=== PATIENT | female | born 1995 | race Two or more races ===

== ENCOUNTER 2020-04-24 23:05 | Emergency (ER) | payer MEDICAID ==
[~2020-04-24] VITALS: Ht 161.3 cm; Wt 120.0 kg
[2020-04-24] MEDS ORDERED: TRAZ-257 PO (23:15)
[2020-04-24] MEDS ORDERED: NALT50TA6 PO (23:15)
[2020-04-25 01:37] VITALS: BP 129/102
== END 2020-04-25 01:37 | disposition home or self-care (01) ==
LOC: EMS 23:05
DX: H60.92 Unspecified otitis externa, left ear (principal); J45.909 Unspecified asthma, uncomplicated; I10 Essential (primary) hypertension; F20.9 Schizophrenia, unspecified; F17.210 Nicotine dependence, cigarettes, uncomplicated; F12.90 Cannabis use, unspecified, uncomplicated; Z91.040 Latex allergy status
CPT/HCPCS: 99283; Z7502

== ENCOUNTER 2020-05-02 13:21 | Emergency (ER) | payer MEDICAID ==
[~2020-05-02] VITALS: Ht 170.2 cm; Wt 140.9 kg
[~2020-05-02 13:21] MED LIST: NALT50TA6 PO; TRAZ-257 PO
[2020-05-02 14:23] VITALS: BP 153/86
[2020-05-02] MEDS ORDERED: ACETAMINOPHEN 500 MG TABLET PO ONE (14:30)
== END 2020-05-02 16:00 | disposition home or self-care (01) ==
LOC: EMS 13:47
DX: S91.331A Puncture wound without foreign body, right foot, initial encounter (principal); F41.9 Anxiety disorder, unspecified; J45.909 Unspecified asthma, uncomplicated; I10 Essential (primary) hypertension; F20.9 Schizophrenia, unspecified; F17.210 Nicotine dependence, cigarettes, uncomplicated; F12.90 Cannabis use, unspecified, uncomplicated; Z88.6 Allergy status to analgesic agent; Z91.040 Latex allergy status; Z91.018 Allergy to other foods; W22.8XXA Striking against or struck by other objects, initial encounter; Y93.89 Activity, other specified; Y92.89 Other specified places as the place of occurrence of the external cause; Y99.8 Other external cause status

== ENCOUNTER 2020-07-23 07:26 | Emergency (ER) | payer MEDICAID ==
[~2020-07-23] VITALS: Ht 160 cm; Wt 122.7 kg
[2020-07-23] MEDS ORDERED: LAMO25TA25 PO (07:38)
[2020-07-23] MEDS ORDERED: ONDANSETRON HCL 4 MG/2 ML VIAL IVP ONE (08:15)
[2020-07-23] MEDS ORDERED: ONDANSETRON HCL 4 MG/2 ML VIAL IM ONE (08:15)
[2020-07-23] MEDS ORDERED: SODIUM CHLORIDE 0.9% 1,000 ML IV ONE (08:15)
[2020-07-23 08:56] LABS: BASOPHILS % (AUTO) 0.5 % (0.0-2.0); EOSINOPHILS % (AUTO) 1.5 % (1.0-6.0); HEMATOCRIT 40.4 % (36-46); HEMOGLOBIN 13.1 g/dL (12.0-16.0); LYMPHOCYTES # (AUTO) 2.6 K/uL (1.0-4.8); LYMPHOCYTES % (AUTO) 28.1 % (22.0-44.0); MEAN CORPUSCULAR HEMOGLOBIN 28.6 pg (26.0-34.0); MEAN CORPUSCULAR HGB CONC 32.3 G/dL (31.0-37.0); MEAN CORPUSCULAR VOLUME 89 fL (80-100); MONOCYTES # (AUTO) 0.8 K/uL (0.1-1.0); MONOCYTES % (AUTO) 9.1 % (2.0-9.0); NEUTROPHILS # (AUTO) 5.6 K/uL (1.8-7.7); NEUTROPHILS % (AUTO) 60.8 % (40.0-70.0); PLATELET COUNT (AUTO) 208 K/uL (150-450); RED BLOOD CELL COUNT(AUTO) 4.56 MIL/uL (4.00-5.20); RED CELL DISTRIBUTION WIDTH 14.5 % (11.5-14.5)
[2020-07-23 09:15] LABS: ANION GAP 9 mmol/L (8-16); CARBON DIOXIDE 27 mmol/L (22-29); CHLORIDE 106 mmol/L (98-107); GLOMERULAR FILTR. RATE CALC > 60 mL/min (>60); GLUCOSE,RANDOM 112 mg/dL (70-110); POTASSIUM 3.9 mmol/L (3.5-5.1); SODIUM SERUM 142 mmol/L (136-145); UREA NITROGEN, BLOOD 12 mg/dL (7-18)
[2020-07-23 09:23] LABS: ALANINE AMINOTRANSFERASE 38 U/L (12-78); ALBUMIN 3.3 g/dL (3.4-5.0); ALKALINE PHOSPHATASE 72 U/L (46-116); ASPARTATE AMINOTRANSFERASE 14 U/L (15-37); BILIRUBIN,TOTAL 0.1 mg/dL (0.1-1.0); TOTAL PROTEIN, SERUM 6.7 g/dL (6.4-8.2)
[2020-07-23 09:53] VITALS: BP 131/89
[2020-07-23 09:54] LABS: APPEARANCE,URINE CLOUDY (CLEAR); BILIRUBIN,URINE NEGATIVE (NEGATIVE); GLUCOSE, URINE (UA) NEGATIVE (NEGATIVE); KETONES,URINE NEGATIVE (NEGATIVE); LEUKOCYTE ESTERASE ,URINE NEGATIVE (NEGATIVE); NITRATE,URINE NEGATIVE (NEGATIVE); OCCULT BLOOD,URINE TRACE (NEGATIVE); PH,URINE 5.5 (5.0-8.0); PROTEIN,URINE NEGATIVE (NEGATIVE); UROBILINOGEN,URINE 0.2 mg/dL (<=1.0)
[2020-07-23 10:22] LABS: BACTERIA,URINE None Seen /HPF (None Seen); CALCIUM OXALATE CRYSTALS,UR Many /LPF (None Seen); RBC,URINE 0-2 /HPF (0-2); SQUAMOUS EPITHELIAL CELL,UR Moderate /LPF (None Seen); WBC,URINE None Seen /HPF (0-5)
== END 2020-07-23 10:11 | disposition home or self-care (01) ==
LOC: EMS 07:31
DX: R10.30 Lower abdominal pain, unspecified (principal); R11.10 Vomiting, unspecified; F17.210 Nicotine dependence, cigarettes, uncomplicated; F12.90 Cannabis use, unspecified, uncomplicated; F32.9 Major depressive disorder, single episode, unspecified; I10 Essential (primary) hypertension; F20.9 Schizophrenia, unspecified; F41.9 Anxiety disorder, unspecified; Z88.6 Allergy status to analgesic agent; Z91.040 Latex allergy status; Z79.899 Other long term (current) drug therapy
CPT/HCPCS: 36415; 76801; 76817; 80053; 81001; 84702; 85025; 86901; 96372; 99284; 99406; J2405

== ENCOUNTER 2020-11-16 16:58 | Inpatient (IN) | payer MEDICAID ==
[~2020-11-16] VITALS: Ht 162.6 cm; Wt 132.1 kg
[~2020-11-16 16:58] MED LIST changes: +LAMO25TA25 PO
[2020-11-16 18:04] LABS: COVID AG,FIA SOURCE NASOPHARYNGEAL
[2020-11-16] MEDS ORDERED: PALI6TAB15 PO (18:21)
[2020-11-16] MEDS ORDERED: PRAZ2 PO (18:21)
[2020-11-16] MEDS ORDERED: FAMO20 PO (18:21)
[2020-11-16] MEDS ORDERED: GABA-1201 PO (18:21)
[2020-11-16] MEDS ORDERED: OMEP20 PO (18:21)
[2020-11-16] MEDS ORDERED: HALOPERIDOL 5 MG TABLET PO PRN (21:45)
[2020-11-16] MEDS ORDERED: ZOLPIDEM TARTRATE 10 MG TABLET PO PRN (21:45)
[2020-11-16] MEDS: LORazepam 2 MG TABLET PO PRN (23:51)
[2020-11-17 02:25] VITALS: BP 126/85
[2020-11-17] MEDS ORDERED: INFLUENZA VIRUS VACCINE QVS 2020-21 (6MO+)/PF 60 MCG/0.5 ML SYRINGE IM ONE (03:30)
[2020-11-17] MEDS ORDERED: PNEUMOCOCCAL VACCINE POLYVALENT 0.5 ML VIAL [PPSV23] IM ONE (03:30)
[2020-11-17] MEDS ORDERED: MAG HYDROX/AL HYDROX/SIMETH ES 30 ML SUSPENSION UDCUP PO PRN (08:00)
[2020-11-17] MEDS ORDERED: PETROLATUM,WHITE 28 GM JELLY TP PRN (08:00)
[2020-11-17] MEDS ORDERED: NICOTINE 14 MG/24 HOUR PATCH TD PRN (08:00)
[2020-11-17] MEDS ORDERED: LOPERAMIDE HCL 2 MG CAPSULE PO PRN (08:00)
[2020-11-17] MEDS ORDERED: ONDANSETRON HCL 4 MG TABLET PO PRN (08:00)
[2020-11-17] MEDS ORDERED: CloNIDine HCL 0.1 MG TABLET PO PRN (08:00)
[2020-11-17] MEDS ORDERED: ACETAMINOPHEN 325 MG TABLET PO PRN (08:00)
[2020-11-17] MEDS ORDERED: ALBUTEROL SULFATE HFA 90 MCG/PUFF 8 GM INHALER IH PRN (08:00)
[2020-11-17] MEDS ORDERED: DOCUSATE SODIUM 100 MG CAPSULE PO PRN (08:00)
[2020-11-17] MEDS ORDERED: GuaiFENesin/D-METHORPHAN [SUGAR-FREE] 200-20MG/10 ML SYRUP UDCUP PO PRN (08:00)
[2020-11-17] MEDS ORDERED: MAGNESIUM HYDROXIDE SUSPENSION 30 ML UDCUP PO PRN (08:00)
[2020-11-17 08:11] VITALS: BP 132/90
[2020-11-17] MEDS ORDERED: OMEPRAZOLE 20 MG CAPSULE PO SCH (09:00)
[2020-11-17] MEDS ORDERED: FAMOTIDINE 20 MG TABLET PO SCH (09:00)
[2020-11-17] MEDS: GABAPENTIN 400 MG CAPSULE PO SCH ×2 (09:31→16:35)
[2020-11-17] MEDS: FAMOTIDINE 20 MG TABLET PO SCH ×2 (09:31→16:35)
[2020-11-17] MEDS: OMEPRAZOLE 20 MG CAPSULE PO SCH (09:31)
[2020-11-17] MEDS: PALIPERIDONE 6 MG ER TABLET PO SCH (12:35)
[2020-11-17] MEDS: LamoTRIgine 100 MG TABLET PO SCH (12:35)
[2020-11-17] MEDS: LORazepam 2 MG TABLET PO PRN (14:36)
[2020-11-17 19:46] VITALS: BP 135/81
[2020-11-17] MEDS: TraZODone HCL 100 MG TABLET PO SCH (20:02)
[2020-11-17] MEDS: PRAZOSIN HCL 1 MG CAPSULE PO SCH (20:02)
[2020-11-18] VITALS (9 sets, daily range): BP systolic 100–143; BP diastolic 60–99
[2020-11-18] MEDS: FAMOTIDINE 20 MG TABLET PO SCH ×2 (09:57→16:24)
[2020-11-18] MEDS: OMEPRAZOLE 20 MG CAPSULE PO SCH (09:57)
[2020-11-18] MEDS: LamoTRIgine 100 MG TABLET PO SCH (09:58)
[2020-11-18] MEDS: GABAPENTIN 400 MG CAPSULE PO SCH ×2 (09:58→16:24)
[2020-11-18] MEDS: PALIPERIDONE 6 MG ER TABLET PO SCH (09:58)
[2020-11-18] MEDS: PRAZOSIN HCL 1 MG CAPSULE PO SCH (20:12)
[2020-11-18] MEDS: TraZODone HCL 100 MG TABLET PO SCH (20:12)
[2020-11-19 00:23] VITALS: BP 118/72
[2020-11-19 05:39] VITALS: BP 118/72
[2020-11-19 08:12] VITALS: BP 123/66
[2020-11-19] MEDS: FAMOTIDINE 20 MG TABLET PO SCH (08:38)
[2020-11-19] MEDS: PALIPERIDONE 6 MG ER TABLET PO SCH (08:38)
[2020-11-19] MEDS: GABAPENTIN 400 MG CAPSULE PO SCH (08:38)
[2020-11-19] MEDS: OMEPRAZOLE 20 MG CAPSULE PO SCH (08:38)
[2020-11-19] MEDS: LamoTRIgine 100 MG TABLET PO SCH (08:40)
[2020-11-19] MEDS: LORazepam 2 MG TABLET PO PRN (11:36)
[2020-11-19] MEDS ORDERED: PRAZ1 PO (13:09)
[2020-11-19] MEDS ORDERED: LAMO100 PO (13:09)
== END 2020-11-19 13:45 | disposition home or self-care (01) | DRG 750 ==
LOC: EMS 16:59 → B2S 21:41
PROVIDERS: ADMIT Psychiatry & Neurology Psychiatry; ATTEND Psychiatry & Neurology Psychiatry
DX: F20.0 Paranoid schizophrenia (principal); Z20.822 Contact with and (suspected) exposure to COVID-19; E66.01 Morbid (severe) obesity due to excess calories; I10 Essential (primary) hypertension; K21.9 Gastro-esophageal reflux disease without esophagitis; F17.200 Nicotine dependence, unspecified, uncomplicated; F12.90 Cannabis use, unspecified, uncomplicated; J44.9 Chronic obstructive pulmonary disease, unspecified; F43.10 Post-traumatic stress disorder, unspecified; F41.8 Other specified anxiety disorders; F44.81 Dissociative identity disorder; Z98.891 History of uterine scar from previous surgery; Z88.6 Allergy status to analgesic agent; Z91.040 Latex allergy status; Z91.018 Allergy to other foods; Z68.43 Body mass index [BMI] 50.0-59.9, adult
CPT/HCPCS: 87426; 90686; 90732; 99285; G0008; G0009; Z7502; Z7610

== ENCOUNTER 2020-12-29 22:31 | Emergency (ER) | payer MEDICAID ==
[~2020-12-29] VITALS: Ht 167.6 cm; Wt 130.0 kg
[~2020-12-29 22:31] MED LIST changes: +GABA-1201 PO; +LAMO100 PO; -LAMO25TA25 PO; -NALT50TA6 PO; +PALI6TAB15 PO; +PRAZ1 PO
[2020-12-30] MEDS ORDERED: CEPHALEXIN MONOHYDRATE 500 MG CAPSULE PO ONE (00:15)
[2020-12-30] MEDS ORDERED: PERTUSS(ACELL),DIPH,TET VAC/PF 0.5 ML SYRINGE IM. ONE (00:15)
[2020-12-30 00:22] VITALS: BP 115/60
== END 2020-12-30 00:23 | disposition home or self-care (01) ==
LOC: EMS 22:34
DX: S81.832A Puncture wound without foreign body, left lower leg, initial encounter (principal); J45.909 Unspecified asthma, uncomplicated; F41.9 Anxiety disorder, unspecified; F31.9 Bipolar disorder, unspecified; I10 Essential (primary) hypertension; F20.9 Schizophrenia, unspecified; F17.210 Nicotine dependence, cigarettes, uncomplicated; F12.90 Cannabis use, unspecified, uncomplicated; Z88.6 Allergy status to analgesic agent; Z91.040 Latex allergy status; Z91.018 Allergy to other foods; W23.0XXA Caught, crushed, jammed, or pinched between moving objects, initial encounter; Y93.89 Activity, other specified; Y92.89 Other specified places as the place of occurrence of the external cause; Y99.8 Other external cause status
CPT/HCPCS: 90471; 90715; 99283

== ENCOUNTER 2021-07-06 23:27 | Emergency (ER) | payer MEDICAID | END 2021-07-07 00:30 | disposition left against medical advice (07) | LOC: EMS 23:28 | DX: Z00.00 Encounter for general adult medical examination without abnormal findings (principal); Z53.21 Procedure and treatment not carried out due to patient leaving prior to being seen by health care provider ==

== ENCOUNTER 2021-11-18 19:03 | Emergency (ER) | payer MEDICAID ==
[~2021-11-18] VITALS: Ht 162.6 cm; Wt 111.4 kg
[2021-11-18] MEDS ORDERED: ALBU8HFA IH (19:11)
[2021-11-18] MEDS ORDERED: RISP2TAB45 PO (19:11)
[2021-11-18] MEDS ORDERED: PRAZ2 PO (19:11)
[2021-11-18] MEDS ORDERED: HYDR50CA6 PO (19:11)
[2021-11-18] MEDS ORDERED: FLUT1BLS8 IH (19:11)
[2021-11-18 20:34] VITALS: BP 125/75
== END 2021-11-18 20:49 | disposition home or self-care (01) ==
LOC: EMS 19:05
DX: S90.122A Contusion of left lesser toe(s) without damage to nail, initial encounter (principal); I10 Essential (primary) hypertension; F20.9 Schizophrenia, unspecified; J44.9 Chronic obstructive pulmonary disease, unspecified; F41.9 Anxiety disorder, unspecified; F31.9 Bipolar disorder, unspecified; F12.90 Cannabis use, unspecified, uncomplicated; F17.210 Nicotine dependence, cigarettes, uncomplicated; Z88.8 Allergy status to other drugs, medicaments and biological substances; Z91.040 Latex allergy status; Z91.018 Allergy to other foods; Z79.899 Other long term (current) drug therapy; W22.8XXA Striking against or struck by other objects, initial encounter; Y93.89 Activity, other specified; Y92.89 Other specified places as the place of occurrence of the external cause; Y99.8 Other external cause status
CPT/HCPCS: 99283

== ENCOUNTER 2022-07-27 09:45 | Emergency (ER) | payer MEDICAID ==
[~2022-07-27] VITALS: Ht 160 cm; Wt 113.6 kg
[~2022-07-27 09:45] MED LIST changes: +ALBU8HFA IH; +FLUT1BLS8 IH; +HYDR50CA6 PO; -PALI6TAB15 PO; -PRAZ1 PO; +PRAZ2 PO; +RISP2TAB45 PO
[2022-07-27 10:28] VITALS: BP 151/94
== END 2022-07-27 13:06 | disposition left against medical advice (07) ==
LOC: EMS 10:14
DX: L02.31 Cutaneous abscess of buttock (principal); Z53.21 Procedure and treatment not carried out due to patient leaving prior to being seen by health care provider

== ENCOUNTER 2022-08-28 10:09 | Inpatient (IN) | payer MEDICAID ==
[~2022-08-28] VITALS: Ht 165.1 cm; Wt 134.9 kg
[2022-08-28 10:54] LABS: COVID AG,FIA SOURCE NASOPHARYNGEAL
[2022-08-28 11:02] LABS: BASOPHILS % (AUTO) 0.7 % (0.0-2.0); EOSINOPHILS % (AUTO) 0.4 % (1.0-6.0); HEMATOCRIT 42.2 % (36-46); HEMOGLOBIN 13.7 g/dL (12.0-16.0); LYMPHOCYTES # (AUTO) 1.6 K/uL (1.0-4.8); LYMPHOCYTES % (AUTO) 15.2 % (22.0-44.0); MEAN CORPUSCULAR HEMOGLOBIN 28.7 pg (26.0-34.0); MEAN CORPUSCULAR HGB CONC 32.5 G/dL (31.0-37.0); MEAN CORPUSCULAR VOLUME 89 fL (80-100); MONOCYTES # (AUTO) 0.7 K/uL (0.1-1.0); MONOCYTES % (AUTO) 7.2 % (2.0-9.0); NEUTROPHILS % (AUTO) 76.5 % (40.0-70.0); PLATELET COUNT (AUTO) 223 K/uL (150-450); RED BLOOD CELL COUNT(AUTO) 4.76 MIL/uL (4.00-5.20); RED CELL DISTRIBUTION WIDTH 13.3 % (11.5-14.5)
[2022-08-28 11:08] LABS: ANION GAP 2 mmol/L (8-16); CALCIUM, TOTAL 8.9 mg/dL (8.8-10.5); CARBON DIOXIDE 30 mmol/L (22-29); CHLORIDE 103 mmol/L (98-107); CREATININE 0.85 mg/dL (0.60-1.30); GLOMERULAR FILTR. RATE CALC > 60 mL/min (>60); GLUCOSE,RANDOM 91 mg/dL (70-110); POTASSIUM 3.8 mmol/L (3.5-5.1); SODIUM SERUM 135 mmol/L (136-145); UREA NITROGEN, BLOOD 10 mg/dL (7-18)
[2022-08-28 11:19] LABS: SALICYLATE 3.2 mg/dL (2.8-20.0)
[2022-08-28 11:22] LABS: ALANINE AMINOTRANSFERASE 30 U/L (12-78); ALBUMIN 3.6 g/dL (3.4-5.0); ALKALINE PHOSPHATASE 81 U/L (46-116); ASPARTATE AMINOTRANSFERASE 26 U/L (15-37); BILIRUBIN,TOTAL 0.6 mg/dL (0.1-1.0); HCG,QUANTITATIVE < 1 mIU/mL (0-6); THYROID STIMULATING HORMONE 1.42 uIU/mL (0.36-3.74); TOTAL PROTEIN, SERUM 7.2 g/dL (6.4-8.2)
[2022-08-28 11:26] LABS: ACETAMINOPHEN < 2 mcg/mL (10-30)
[2022-08-28 13:07] LABS: AMPHET/METH SCREEN,URINE POSITIVE (NEGATIVE); BARBITURATE SCREEN, URINE NEGATIVE (NEGATIVE); BENZODIAZEPINES SCREEN,URINE NEGATIVE (NEGATIVE); CANNABINOID SCREEN,URINE NEGATIVE (NEGATIVE); COCAINE SCREEN,URINE NEGATIVE (NEGATIVE); METHADONE SCREEN, URINE NEGATIVE (NEGATIVE); OPIATE SCREEN,URINE NEGATIVE (NEGATIVE)
[2022-08-28 13:09] LABS: PHENCYCLIDINE SCREEN,URINE NEGATIVE (NEGATIVE)
[2022-08-28] MEDS ORDERED: ZOLPIDEM TARTRATE 10 MG TABLET PO PRN (15:00)
[2022-08-28] MEDS: HALOPERIDOL 5 MG TABLET PO PRN ×2 (16:03→19:53)
[2022-08-28] MEDS: LORazepam 2 MG TABLET PO PRN ×2 (16:04→19:53)
[2022-08-28 20:30] VITALS: BP 121/82
[2022-08-28] MEDS ORDERED: PNEUMOCOCCAL VACCINE POLYVALENT 0.5 ML VIAL [PPSV23] IM. ONE (21:45)
[2022-08-29] MEDS: DIVALPROEX SODIUM 500 MG DR TABLET PO SCH ×2 (09:00→16:20)
[2022-08-29] MEDS: LITHIUM CARBONATE 300 MG CAPSULE PO SCH ×2 (09:00→16:20)
[2022-08-29] MEDS ORDERED: RisperiDONE 2 MG TABLET PO SCH (09:00)
[2022-08-29] MEDS ORDERED: OMEPRAZOLE 20 MG CAPSULE PO PRN (14:30)
[2022-08-29] MEDS ORDERED: MAG HYDROX/AL HYDROX/SIMETH ES 30 ML SUSPENSION UDCUP PO PRN (14:30)
[2022-08-29] MEDS ORDERED: PETROLATUM,WHITE 28 GM JELLY TP PRN (14:30)
[2022-08-29] MEDS ORDERED: BACITRACIN 28 GM OINTMENT TP PRN (14:30)
[2022-08-29] MEDS ORDERED: ACETAMINOPHEN 325 MG TABLET PO PRN (14:30)
[2022-08-29] MEDS ORDERED: ALBUTEROL SULFATE HFA 90 MCG/PUFF 8 GM INHALER IH PRN (14:30)
[2022-08-29] MEDS ORDERED: MAGNESIUM HYDROXIDE SUSPENSION 30 ML UDCUP PO PRN (14:30)
[2022-08-29] MEDS ORDERED: CloNIDine HCL 0.1 MG TABLET PO PRN (14:30)
[2022-08-29] MEDS ORDERED: ONDANSETRON HCL 4 MG TABLET PO PRN (14:30)
[2022-08-29] MEDS ORDERED: BENZOCAINE/MENTHOL LOZENGE PO PRN (14:30)
[2022-08-29] MEDS ORDERED: DOCUSATE SODIUM 100 MG CAPSULE PO PRN (14:30)
[2022-08-29] MEDS ORDERED: LOPERAMIDE HCL 2 MG CAPSULE PO PRN (14:30)
[2022-08-29 15:57] LABS: APPEARANCE,URINE CLEAR (CLEAR); BILIRUBIN,URINE NEGATIVE (NEGATIVE); GLUCOSE, URINE (UA) NEGATIVE (NEGATIVE); KETONES,URINE NEGATIVE (NEGATIVE); LEUKOCYTE ESTERASE ,URINE NEGATIVE (NEGATIVE); NITRATE,URINE NEGATIVE (NEGATIVE); OCCULT BLOOD,URINE NEGATIVE (NEGATIVE); PH,URINE 7.5 (5.0-8.0); PROTEIN,URINE NEGATIVE (NEGATIVE); SPECIFIC GRAVITIY, URINE 1.015 (1.003-1.030); UROBILINOGEN,URINE <=1.0 mg/dL (<=1.0)
[2022-08-29] MEDS: GABAPENTIN 400 MG CAPSULE PO SCH (16:20)
[2022-08-29] MEDS: RisperiDONE 2 MG TABLET PO SCH (16:20)
[2022-08-29] MEDS ORDERED: LITHIUM CARBONATE 300 MG CAPSULE PO SCH (17:00)
[2022-08-29] MEDS ORDERED: DIVALPROEX SODIUM 500 MG DR TABLET PO SCH (17:00)
[2022-08-29 20:30] VITALS: BP 126/76
[2022-08-29] MEDS: PRAZOSIN HCL 2 MG CAPSULE PO SCH (21:14)
[2022-08-30] MEDS: GABAPENTIN 400 MG CAPSULE PO SCH ×2 (08:00→16:41)
[2022-08-30] MEDS: RisperiDONE 2 MG TABLET PO SCH ×2 (08:00→16:21)
[2022-08-30] MEDS: LITHIUM CARBONATE 300 MG CAPSULE PO SCH ×2 (08:00→16:21)
[2022-08-30] MEDS: DIVALPROEX SODIUM 500 MG DR TABLET PO SCH ×2 (08:00→16:21)
[2022-08-30 08:24] VITALS: BP 127/94
[2022-08-30 20:20] VITALS: BP 128/94
[2022-08-30] MEDS: PRAZOSIN HCL 2 MG CAPSULE PO SCH (20:26)
[2022-08-31 08:28] VITALS: BP 126/84
[2022-08-31] MEDS: DIVALPROEX SODIUM 500 MG DR TABLET PO SCH ×2 (08:58→16:15)
[2022-08-31] MEDS: RisperiDONE 2 MG TABLET PO SCH ×2 (08:58→16:15)
[2022-08-31] MEDS: GABAPENTIN 400 MG CAPSULE PO SCH ×2 (08:58→16:16)
[2022-08-31] MEDS: LITHIUM CARBONATE 300 MG CAPSULE PO SCH ×2 (08:58→16:15)
[2022-08-31] MEDS: HALOPERIDOL 5 MG TABLET PO PRN (10:42)
[2022-08-31] MEDS: LORazepam 2 MG TABLET PO PRN (10:42)
[2022-08-31 20:15] VITALS: BP 120/74
[2022-08-31] MEDS: PRAZOSIN HCL 2 MG CAPSULE PO SCH (20:26)
[2022-09-01] MEDS: DIVALPROEX SODIUM 500 MG DR TABLET PO SCH ×2 (08:29→16:34)
[2022-09-01] MEDS: RisperiDONE 2 MG TABLET PO SCH ×2 (08:29→16:35)
[2022-09-01] MEDS: LITHIUM CARBONATE 300 MG CAPSULE PO SCH ×2 (08:29→16:34)
[2022-09-01] MEDS: GABAPENTIN 400 MG CAPSULE PO SCH ×2 (08:29→16:35)
[2022-09-01 08:36] VITALS: BP 161/95
[2022-09-01] MEDS: LORazepam 2 MG TABLET PO PRN (18:25)
[2022-09-01] MEDS: HALOPERIDOL 5 MG TABLET PO PRN (18:25)
[2022-09-01 20:03] VITALS: BP 135/85
[2022-09-01] MEDS: PRAZOSIN HCL 2 MG CAPSULE PO SCH (20:20)
[2022-09-02 07:45] LABS: LITHIUM 0.33 mmol/L (0.60-1.20)
[2022-09-02] MEDS: GABAPENTIN 400 MG CAPSULE PO SCH (08:20)
[2022-09-02] MEDS: RisperiDONE 2 MG TABLET PO SCH (08:20)
[2022-09-02] MEDS: LITHIUM CARBONATE 300 MG CAPSULE PO SCH (08:20)
[2022-09-02] MEDS: DIVALPROEX SODIUM 500 MG DR TABLET PO SCH (08:20)
[2022-09-02 08:28] VITALS: BP 121/89
[2022-09-02] MEDS ORDERED: LITH300C3 PO (13:48)
[2022-09-02] MEDS ORDERED: DIVA-112 PO (13:48)
== END 2022-09-02 15:17 | disposition home or self-care (01) | DRG 750 ==
LOC: EMS 10:15 → B3A 19:35
PROVIDERS: ADMIT Psychiatry & Neurology Psychiatry; ATTEND Psychiatry & Neurology Psychiatry
DX: F25.9 Schizoaffective disorder, unspecified (principal); R45.851 Suicidal ideations; F41.9 Anxiety disorder, unspecified; F43.10 Post-traumatic stress disorder, unspecified; J44.9 Chronic obstructive pulmonary disease, unspecified; I10 Essential (primary) hypertension; T50.902A Poisoning by unspecified drugs, medicaments and biological substances, intentional self-harm, initial encounter; G47.00 Insomnia, unspecified; K59.00 Constipation, unspecified; E78.5 Hyperlipidemia, unspecified; F15.10 Other stimulant abuse, uncomplicated; K21.9 Gastro-esophageal reflux disease without esophagitis; E66.9 Obesity, unspecified; Z87.891 Personal history of nicotine dependence; Z78.1 Physical restraint status; Z91.040 Latex allergy status; Z88.8 Allergy status to other drugs, medicaments and biological substances; Z91.018 Allergy to other foods; Z68.42 Body mass index [BMI] 45.0-49.9, adult
CPT/HCPCS: 80053; 80164; 80178; 80307; 81003; 83735; 84443; 84702; 85025; 93005; 99291; G0480; G0481

== ENCOUNTER 2022-09-27 09:11 | Emergency (ER) | payer MEDICAID ==
[~2022-09-27] VITALS: Ht 167.6 cm; Wt 136.0 kg
[~2022-09-27 09:11] MED LIST changes: -ALBU8HFA IH; +DIVA-112 PO; -FLUT1BLS8 IH; -HYDR50CA6 PO; -LAMO100 PO; +LITH300C3 PO; -TRAZ-257 PO
[2022-09-27 11:01] VITALS: BP 121/64
[2022-09-27] MEDS ORDERED: TRAZ-257 PO (11:13)
[2022-09-27 11:28] LABS: COVID AG,FIA SOURCE NASOPHARYNGEAL
[2022-09-27 12:39] LABS: APPEARANCE,URINE TURBID (CLEAR); BILIRUBIN,URINE NEGATIVE (NEGATIVE); GLUCOSE, URINE (UA) NEGATIVE (NEGATIVE); KETONES,URINE NEGATIVE (NEGATIVE); LEUKOCYTE ESTERASE ,URINE TRACE (NEGATIVE); NITRATE,URINE NEGATIVE (NEGATIVE); OCCULT BLOOD,URINE NEGATIVE (NEGATIVE); PROTEIN,URINE TRACE mg/dL (NEGATIVE); SPECIFIC GRAVITIY, URINE 1.021 (1.003-1.030); UROBILINOGEN,URINE <=1.0 mg/dL (<=1.0)
[2022-09-27 12:43] LABS: AMPHET/METH SCREEN,URINE POSITIVE (NEGATIVE); BARBITURATE SCREEN, URINE NEGATIVE (NEGATIVE); BENZODIAZEPINES SCREEN,URINE NEGATIVE (NEGATIVE); CANNABINOID SCREEN,URINE NEGATIVE (NEGATIVE); COCAINE SCREEN,URINE NEGATIVE (NEGATIVE); METHADONE SCREEN, URINE NEGATIVE (NEGATIVE); OPIATE SCREEN,URINE NEGATIVE (NEGATIVE)
[2022-09-27 12:44] LABS: PHENCYCLIDINE SCREEN,URINE NEGATIVE (NEGATIVE)
[2022-09-27 12:52] LABS: BACTERIA,URINE None Seen /HPF (None Seen); RBC,URINE None Seen /HPF (0-2); WBC,URINE 0-2 /HPF (0-5)
[2022-09-27 12:53] LABS: SQUAMOUS EPITHELIAL CELL,UR Many /LPF (None Seen)
== END 2022-09-27 12:44 | disposition home or self-care (01) ==
LOC: EMS 09:16
DX: F25.0 Schizoaffective disorder, bipolar type (principal); F41.9 Anxiety disorder, unspecified; J45.909 Unspecified asthma, uncomplicated; F31.9 Bipolar disorder, unspecified; J44.9 Chronic obstructive pulmonary disease, unspecified; I10 Essential (primary) hypertension; F17.210 Nicotine dependence, cigarettes, uncomplicated; F12.90 Cannabis use, unspecified, uncomplicated; Z98.890 Other specified postprocedural states; Z20.822 Contact with and (suspected) exposure to COVID-19; Z88.6 Allergy status to analgesic agent; Z91.040 Latex allergy status; Z91.018 Allergy to other foods
CPT/HCPCS: 80307; 81001; 99285